=== PATIENT | female | born 1990 | race African-American/Black ===

== ENCOUNTER 2016-10-12 23:13 | Emergency (ER) | payer OTHER, MEDICAID ==
[~2016-10-12] VITALS: Ht 170.2 cm; Wt 113.0 kg
[~2016-10-12 23:13] MED LIST: LOMO2.5T PO; ZOFR4TAB3 SL
[2016-10-12 23:33] VITALS: BP 132/84; PULSE 72; RESP 16; TEMP 98.2; O2SAT 100
[2016-10-12] MEDS ORDERED: MOME1SPR2 EACH NARE (23:52)
--- NOTE | 2016-10-12 23:52 | PD ---
HPI Chief Complaint: ENT Complaint Time Seen by Provider: 23:50 Travel History International Travel<30 days: No Contact w/Intl Traveler<30days: No Traveled to known affect area: No History of Present Illness HPI 26 year-old female presents to emergency department for evaluation of sinus pressure, congestion, significant frontal headache, and postnasal drip. Patient believes that she may have a sinus infection. She denies fever or chills. No cough or chest congestion. No nausea, vomiting, or diarrhea. She has no other symptoms to report. [facility] Past Medical History Medical History: Denies Significant Hx Diminished Hearing: No Integumentary: Yes (RASH ON HANDS) ?: Not LMP: LAST WEEK : 2 Para: 2 Ectopic : No Ovarian Cysts: No Tubal Ligation: No Past Surgical History Section: Yes (X 1) Hysterectomy: No Social History Alcohol Use: No Tobacco Use: No Substance Use: No Allergies-Medications (Allergen,Severity, Reaction): Coded Allergies: Keflex (Verified Allergy, Severe, RASH, 10/12/16) Augmentin (Verified Adverse Reaction, Severe, NAUSEA AND VOMITING, 10/12/16) Reported Meds & Prescriptions Reported Meds & Active Scripts Active Mometasone Nasal [place] 50 Mcg/Act [place] 2 [place] EACH NARE DAILY Review of Systems Except as stated in HPI: all other systems reviewed are Neg Physical Exam Narrative GENERAL: Well-nourished female patient, in no acute distress SKIN: Warm and dry. HEAD: Atraumatic. Normocephalic. Tenderness to palpation over the maxillary sinuses. EYES: Pupils equal and round. No scleral icterus. No injection or drainage. ENT: No nasal bleeding or discharge. 2+ tonsillar edema with significant erythema. No obvious exudates Mucous membranes pink and moist. Turbinates are inflamed with clear drainage. NECK: Trachea midline. No JVD. CARDIOVASCULAR: Regular rate and rhythm. No murmur appreciated. RESPIRATORY: No accessory muscle use. Clear to auscultation. Breath sounds equal bilaterally. GASTROINTESTINAL: Abdomen soft, non-tender, nondistended. Hepatic and splenic margins not palpable. MUSCULOSKELETAL: No obvious deformities. No clubbing. No cyanosis. No edema. NEUROLOGICAL: Awake and alert. No obvious cranial nerve deficits. Motor grossly within normal limits. Normal speech. PSYCHIATRIC: Appropriate mood and affect; insight and judgment normal. Data Data Last Documented VS Vital Signs Date Time Temp Pulse Resp B/P Pulse Ox O2 Delivery O2 Flow Rate FiO2 10/12/16 23:33 98.2 72 16 132/84 100 Room Air Orders Group A Rapid Strep Screen (10/12/16 23:45) Ketorolac Inj (Toradol Inj) (10/13/16 00:00) Diphenhydramine (Benadryl) (10/13/16 00:00) Strep Culture (Group A) (10/12/16 23:47) MDM Medical Decision Making Medical Screen Exam Complete: Yes Emergency Medical Condition: Yes Medical Record Reviewed: Yes Differential Diagnosis Sinusitis viral versus acute bacterial rhinosinusitis versus common cold versus influenza Narrative Course 26 year-old female presents to emergency department for evaluation. Physical exam and history are consistent with a viral sinusitis. Patient is counseled on symptomatic management. She is encouraged follow-up with primary care provider and return immediately with any acute worsening of symptoms. Diagnosis Primary Impression: Sinusitis Qualified Code: J01.00 - Acute maxillary sinusitis, recurrence not specified Referrals: Ear / Nose / Throat Specialist Primary Care Physician Patient Instructions: General Instructions, Sinusitis (ED) Departure Forms: Tests/Procedures, Work Release Enter return to work date: Oct 15, 2016 Additional Instructions: Humidified air may help to alleviate symptoms [id number]-aof-[id number] antihistamine such as Benadryl as directed on the package as needed for nasal congestion Tylenol or ibuprofen external packs as needed for fever and/or pain Return immediately to the emergency department with any acute worsening of symptoms Med/Other Pt SpecificInfo: Prescription(s) given Scripts Mometasone Nasal [place] 50 Mcg/Act Spray2 [place] EACH NARE DAILY #1 BOTTLE Ref 0 Prov:Saira Beatty 10/12/16 Disposition: 01 DISCHARGE HOME Condition: Stable Saira Beatty Oct 12, 2016 23:52
[2016-10-12] MEDS: KETOROLAC TROMETHAMINE 60 MG/2 ML (IM) VIAL IM ONE (23:58)
[2016-10-13] MEDS: KETOROLAC TROMETHAMINE 60 MG/2 ML (IM) VIAL IM ONE
[2016-10-13] MEDS ORDERED: diphenhydrAMINE HCL 25 MG CAP PO ONE
== END 2016-10-13 00:03 | disposition home or self-care (01) ==
LOC: NEPB 23:13
DX: J01.00 Acute maxillary sinusitis, unspecified (principal)
CPT/HCPCS: 87081; 87880; 99283; J1885

== ENCOUNTER 2017-05-27 20:01 | Emergency (ER) | payer OTHER, MEDICAID ==
[~2017-05-27] VITALS: Ht 170.2 cm; Wt 111.0 kg
[~2017-05-27 20:01] MED LIST changes: -LOMO2.5T PO; +MOME1SPR2 EACH NARE; -ZOFR4TAB3 SL
[2017-05-27 20:02] VITALS: BP 157/95; PULSE 83; RESP 16; TEMP 99.1; O2SAT 98
[2017-05-27] MEDS ORDERED: MOME17I EACH NARE (21:10)
[2017-05-27] MEDS ORDERED: CIPRHC10A RIGHT EAR (21:10)
--- NOTE | 2017-05-27 21:10 | PD ---
HPI Chief Complaint: ENT Complaint Time Seen by Provider: 20:37 Travel History International Travel<30 days: No Contact w/Intl Traveler<30days: No Traveled to known affect area: No History of Present Illness HPI 27 year-old female presents to emergency department for evaluation of right ear pain and muffled hearing. Patient states it has worsened over the last 24 hours. She reports that it was there last week, but resolved on its own. She thought it may have to do with allergies however he has returned and is painful. She feels as though there may be water in her ear. She also has moderately sore throat and sinus congestion. No cough or chest congestion. No other symptoms to report. PFSH Past Medical History Diminished Hearing: No Integumentary: Yes (RASH ON HANDS) Immunizations Current: Yes ?: Not LMP: 04/26/17 : 2 Para: 2 Ectopic : No Ovarian Cysts: No Tubal Ligation: No Past Surgical History Section: Yes (X 1) Hysterectomy: No Social History Alcohol Use: No Tobacco Use: No Substance Use: No Allergies-Medications (Allergen,Severity, Reaction): Coded Allergies: cephalexin (Unverified Allergy, Severe, RASH, 04/17/17) amoxicillin (Unverified Adverse Reaction, Severe, NAUSEA AND VOMITING, ) clavulanic acid (Unverified Adverse Reaction, Severe, NAUSEA AND VOMITING , 04/17/17) Reported Meds & Prescriptions Reported Meds & Active Scripts Active Nasonex Nasal [place] (Mometasone Furoate) 50 Mcg/Act Naspr 2 [place] EACH NARE DAILY Cipro Hc Otic Drops (Ciprofloxacin/Hydrocortisone) 0.2-1% Susp 3 Drop RIGHT EAR BID Mometasone Nasal [place] 50 Mcg/Act [place] 2 [place] EACH NARE DAILY Review of Systems Except as stated in HPI: all other systems reviewed are Neg Physical Exam Narrative GENERAL: Well-nourished female patient, in no acute distress SKIN: Focused skin assessment warm/dry. HEAD: Atraumatic. Normocephalic. No mastoid tenderness EYES: Pupils equal and round. No scleral icterus. No injection or drainage. EARS: Bilateral pinnae and left external canals appear within normal limits. Right external canal is edematous and erythematous. Bilateral tympanic membranes without erythema, dullness or perforation. ENT: No nasal bleeding or discharge. Mucous membranes pink and moist. Pharynx with erythema, mild edema, no exudate. There is postnasal drip noted. NECK: Trachea midline. No JVD. CARDIOVASCULAR: Regular rate and rhythm. No murmur appreciated. RESPIRATORY: No accessory muscle use. Clear to auscultation. Breath sounds equal bilaterally. MUSCULOSKELETAL: No obvious deformities. No clubbing. No cyanosis. No edema. NEUROLOGICAL: Awake and alert. No obvious cranial nerve deficits. Motor grossly within normal limits. Normal speech. PSYCHIATRIC: Appropriate mood and affect; insight and judgment normal. Data Data Last Documented VS Vital Signs Date Time Temp Pulse Resp B/P (MAP) Pulse Ox O2 Delivery O2 Flow Rate FiO2 05/27/17 21:29 05/27/17 20:02 99.1 83 16 98 Room Air MDM Medical Decision Making Medical Screen Exam Complete: Yes Emergency Medical Condition: Yes Medical Record Reviewed: Yes Differential Diagnosis Allergies versus otitis media versus otitis externa versus pharyngitis Narrative Course 27 year-old female presents to emergency department for evaluation. Patient has findings consistent with the right otitis externa and sinusitis. Patient is counseled on care. She is given prescription for her otitis externa. She is encouraged to follow-up with primary care provider and return immediately with any acute worsening of symptoms. Diagnosis Primary Impression: Otitis externa of right ear Qualified Codes: H60.501 - Unspecified acute noninfective otitis externa, right ear Additional Impressions: Sinusitis Qualified Codes: J32.0 - Chronic maxillary sinusitis Post-nasal drip Referrals: Primary Care Physician Patient Instructions: Allergies (ED), General Instructions, Otitis Externa (ED) Departure Forms: Tests/Procedures, Work Release Enter return to work date: May 29, 2017 Additional Instructions: Humidified air may help to alleviate symptoms Follow-up with her primary care provider [id number] antihistamine such as Zyrtec or Benadryl as directed on package may also help to alleviate her symptoms Avoid water submersion Do not use Q-tips Return immediately to the emergency department with any acute worsening of symptoms Med/Other Pt SpecificInfo: Prescription(s) given Scripts Mometasone Nasal [place] (Nasonex Nasal [place]) 50 Mcg/Act Naspr 2 SPRAY EACH NARE DAILY for Allergy Management, #1 BOTTLE 0 Refills Prov: Saira Beatty 05/27/17 Ciprofloxacin-Hydrocortisone Otic Drops (Cipro Hc Otic Drops) 0.2-1% Susp 3 DROP RIGHT EAR BID for Infection, #1 BOTTLE 0 Refills Prov: Saira Beatty 05/27/17 Disposition: 01 DISCHARGE HOME Condition: Stable Saira Beatty May 27, 2017 21:10
== END 2017-05-27 21:17 | disposition home or self-care (01) ==
LOC: NEPD 20:01
DX: H60.501 Unspecified acute noninfective otitis externa, right ear (principal); J32.0 Chronic maxillary sinusitis
CPT/HCPCS: 99284

== ENCOUNTER 2017-09-12 21:56 | Emergency (ER) | payer OTHER, MEDICAID ==
[~2017-09-12 21:56] MED LIST changes: +CIPRHC10A RIGHT EAR; +MOME17I EACH NARE
[2017-09-12 22:05] VITALS: BP 148/95; PULSE 80; RESP 20; TEMP 98.3; O2SAT 98
--- NOTE | 2017-09-13 02:21 | PD ---
HPI Chief Complaint: ENT Complaint Time Seen by Provider: 01:08 Travel History International Travel<30 days: No Contact w/Intl Traveler<30days: No Traveled to known affect area: No History of Present Illness HPI Patient for the last few days feels pressure and fluid like congestion in her ear left-sided. She is not taking any medication she has not seen another doctor it is pressure fluid filled feeling in her left sided ear. Does not radiate she's had mild upper congestion in her nose that she has chronic sinusitis she reports denies diabetes hypertension denies fevers denies sick contacts PFS Past Medical History Diminished Hearing: No Integumentary: Yes (RASH ON HANDS) Immunizations Current: Yes Tetanus Vaccination: < 5 Years Influenza Vaccination: No ?: Unknown LMP: 3 WEEKS AGO : 2 Para: 2 Ectopic : No Ovarian Cysts: No Tubal Ligation: No Past Surgical History Section: Yes (X 1) Hysterectomy: No Social History Alcohol Use: No Tobacco Use: No Substance Use: No Allergies-Medications (Allergen,Severity, Reaction): Coded Allergies: cephalexin (Unverified Allergy, Severe, RASH, 09/13/17) clavulanic acid (Unverified Adverse Reaction, Severe, NAUSEA AND VOMITING , 09/13/17) Reported Meds & Prescriptions Reported Meds & Active Scripts Active Ciprodex Otic Drops (Ciprofloxacin-Dexamethasone Otic Drops) 0.3-0.1% Susp 4 Drop LEFT EAR BID Clindamycin (Clindamycin HCl) 150 Mg Cap 150 Mg PO Q6HR 10 Days Review of Systems Except as stated in HPI: all other systems reviewed are Neg HENT: Positive: Rhinitis, Earache Physical Exam Narrative GENERAL: SKIN: Warm and dry. HEAD: Atraumatic. Normocephalic. EYES: Pupils equal and round. No scleral icterus. No injection or drainage. ENT: No nasal bleeding or discharge. Mucous membranes pink and moist. Left external canal has purulence and drainage the TM is clear. Right TM and right canal are clear NECK: Trachea midline. No JVD. Mild submandibular lymphadenopathy mild swelling CARDIOVASCULAR: Regular rate and rhythm. RESPIRATORY: No accessory muscle use. Clear to auscultation. Breath sounds equal bilaterally. GASTROINTESTINAL: Abdomen soft, non-tender, nondistended. Hepatic and splenic margins not palpable. MUSCULOSKELETAL: Extremities without clubbing, cyanosis, or edema. No obvious deformities. NEUROLOGICAL: Awake and alert. No obvious cranial nerve deficits. Motor grossly within normal limits. Five out of 5 muscle strength in the arms and legs. Normal speech. PSYCHIATRIC: Appropriate mood and affect; insight and judgment normal. Data Data Last Documented VS Vital Signs Date Time Temp Pulse Resp B/P (MAP) Pulse Ox O2 Delivery O2 Flow Rate FiO2 09/12/17 22:05 98.3 80 20 148/95 (112) 98 Orders Orders Influenzae A/B Antigen (09/13/17 01:15) Group A Rapid Strep Screen (09/13/17 01:15) Strep Culture (Group A) (09/13/17 01:20) Clindamycin (Cleocin) (09/13/17 02:30) Ibuprofen (Motrin) (09/13/17 02:30) Ed Discharge Order (09/13/17 02:24) MDM Medical Decision Making Medical Screen Exam Complete: Yes Emergency Medical Condition: Yes Differential Diagnosis Differential includes a upper respiratory infection versus bacterial otitis media versus otitis externa versus strep pharyngitis versus influenza other Narrative Course Flu swab and strep swab are negative patient's external ear looks like there is exudate on the left needing antibiotics drops as well as by mouth for her clindamycin by mouth here as well as Ciprodex drops Rx to take to pharmacy. Follow-up as an outpatient Diagnosis Primary Impression: Otitis externa Additional Impression: Sinusitis Patient Instructions: General Instructions, Otitis Externa (ED) Scripts Ciprofloxacin-Dexamethasone Otic Drops (Ciprodex Otic Drops) 0.3-0.1% Susp 4 DROP LEFT EAR BID for Infection, #1 BOTTLE 0 Refills Prov: Nilesh Nation MD 09/13/17 Clindamycin (Clindamycin) 150 Mg Cap 150 MG PO Q6HR for Infection for 10 Days, CAP 0 Refills Prov: Nilesh Nation MD 09/13/17 Disposition: 01 DISCHARGE HOME Condition: Good Nilesh Nation MD Sep 13, 2017 02:21
[2017-09-13] MEDS ORDERED: CLIN150C14 PO (02:23)
[2017-09-13] MEDS ORDERED: CIPR0.3S LEFT EAR (02:23)
[2017-09-13] MEDS ORDERED: IBUPROFEN 600 MG TAB PO ONE (02:30)
[2017-09-13] MEDS ORDERED: CLINDAMYCIN 150 MG CAP PO ONE (02:30)
[2017-09-13 02:41] VITALS: BP 140/90
== END 2017-09-13 02:47 | disposition home or self-care (01) ==
LOC: PHED 21:56 → PHEFT 09-13 02:47
DX: H60.92 Unspecified otitis externa, left ear (principal); J32.9 Chronic sinusitis, unspecified; R21 Rash and other nonspecific skin eruption; Z88.1 Allergy status to other antibiotic agents
CPT/HCPCS: 87081; 87804; 87880; 99284

== ENCOUNTER 2017-11-04 10:51 | Emergency (ER) | payer OTHER, MEDICAID ==
[~2017-11-04] VITALS: Ht 170.2 cm; Wt 110.0 kg
[~2017-11-04 10:51] MED LIST changes: +CIPR0.3S LEFT EAR; -CIPRHC10A RIGHT EAR; +CLIN150C14 PO; -MOME17I EACH NARE; -MOME1SPR2 EACH NARE
[2017-11-04 10:53] VITALS: BP 132/91; PULSE 104; RESP 17; TEMP 98.5; O2SAT 100
[2017-11-04] MEDS ORDERED: CLAR5TAB9 PO (11:07)
[2017-11-04] MEDS ORDERED: OCEA0.653 EACH NARE (11:29)
[2017-11-04] MEDS ORDERED: CLIN150C14 PO (11:29)
--- NOTE | 2017-11-04 11:29 | PD ---
HPI Chief Complaint: Cold / Flu Symptoms Time Seen by Provider: 11:02 Travel History International Travel<30 days: No Contact w/Intl Traveler<30days: No Traveled to known affect area: No History of Present Illness HPI 27-year-old female arrives with sinus pressure for about 2 weeks. She has had similar processes before. She reports using loratadine with Sudafed with minimal benefit. Symptoms are constant. No double vision. She denies fever. The pain is a pressure-like sensation. Symptoms seem worse at work. She was unable to attend temple today due to her symptoms. PFSH Past Medical History Medical History: Denies Significant Hx Diminished Hearing: No Integumentary: Yes (RASH ON HANDS) Immunizations Current: Yes ?: Not LMP: LAST WEEK : 2 Para: 2 Ectopic : No Ovarian Cysts: No Tubal Ligation: No Past Surgical History Section: Yes (X 1) Hysterectomy: No Social History Alcohol Use: No Tobacco Use: No Substance Use: No Allergies-Medications (Allergen,Severity, Reaction): Coded Allergies: cephalexin (Unverified Allergy, Severe, RASH, 11/04/17) clavulanic acid (Unverified Adverse Reaction, Severe, NAUSEA AND VOMITING , 11/04/17) Reported Meds & Prescriptions Reported Meds & Active Scripts Active [place] Nasal [place] (Sodium Chloride) 0.65% [place] 2 [place] EACH NARE DIRECTED PRN Clindamycin (Clindamycin HCl) 150 Mg Cap 450 Mg PO Q6HR 10 Days Reported Claritin-D 12 HR (Loratadine-Pseudoephedrine 12 HR) 5-120 Mg Tab 1 Tab PO BID Review of Systems Except as stated in HPI: all other systems reviewed are Neg Physical Exam Narrative GENERAL: 27 yo F, WNWD, NAD Vital Signs Date Time Temp Pulse Resp B/P (MAP) Pulse Ox O2 Delivery O2 Flow Rate FiO2 11/04/17 10:53 98.5 104 17 132/91 (105) 100 SKIN: Warm and dry. HEAD: Atraumatic. Normocephalic. EYES: Pupils equal and round. No scleral icterus. No injection or drainage. ENT: No nasal bleeding or discharge. Mucous membranes pink and moist. Minimal tenderness overlying the maxillary face and frontal sinuses. NECK: Trachea midline. No JVD. CARDIOVASCULAR: Regular rate and rhythm. RESPIRATORY: No accessory muscle use. Clear to auscultation. Breath sounds equal bilaterally. GASTROINTESTINAL: Abdomen soft, non-tender, nondistended. Hepatic and splenic margins not palpable. MUSCULOSKELETAL: Extremities without clubbing, cyanosis, or edema. No obvious deformities. NEUROLOGICAL: Awake and alert. No obvious cranial nerve deficits. Motor grossly within normal limits. Five out of 5 muscle strength in the arms and legs. Normal speech. PSYCHIATRIC: Appropriate mood and affect; insight and judgment normal. Data Data Last Documented VS Vital Signs Date Time Temp Pulse Resp B/P (MAP) Pulse Ox O2 Delivery O2 Flow Rate FiO2 11/04/17 10:53 98.5 104 17 132/91 (105) 100 Orders Orders Ed Discharge Order (11/04/17 11:29) MDM Medical Decision Making Medical Screen Exam Complete: Yes Emergency Medical Condition: Yes Differential Diagnosis Sinusitis, chronic sinusitis, allergies, otitis media, otitis externa Narrative Course Presentation is consistent with chronic sinusitis. Clindamycin and saline irrigation. Return precautions discussed. Diagnosis Primary Impression: Sinusitis Qualified Codes: J32.9 - Chronic sinusitis, unspecified Referrals: Jose Carlos Patten MD 2 days Med/Other Pt SpecificInfo: Prescription(s) given Scripts [place] Nasal ([place] Nasal [place]) 0.65% [place] 2 SPR[place] EACH NARE DIRECTED Y for NASAL CONGESTION, #1 BOTTLE 0 Refills Prov: Tavon Richardson MD 11/04/17 Clindamycin (Clindamycin) 150 Mg Cap 450 MG PO Q6HR for Infection for 10 Days, CAP 0 Refills Prov: Tavon Richardson MD 11/04/17 Disposition: 01 DISCHARGE HOME Condition: Stable Tavon Richardson MD Nov 04, 2017 11:29
== END 2017-11-04 11:50 | disposition home or self-care (01) ==
LOC: NEPE 10:51
DX: J32.9 Chronic sinusitis, unspecified (principal)
CPT/HCPCS: 99283

== ENCOUNTER 2018-01-07 17:24 | Emergency (ER) | payer OTHER, MEDICAID | END 2018-01-07 20:55 | disposition home or self-care (01) | LOC: NEPK 17:24 | DX: J30.2 Other seasonal allergic rhinitis (principal); Z88.8 Allergy status to other drugs, medicaments and biological substances | CPT/HCPCS: 99282 ==